=== PATIENT | male | born 1985 | race Caucasian/White ===

== ENCOUNTER 2019-01-19 14:10 | Emergency (ER) | payer MEDICAID ==
[~2019-01-19] VITALS: Ht 180.3 cm; Wt 68.0 kg
[2019-01-19] MEDS ORDERED: ERYT1OIN LEFTEYE (15:04)
== END 2019-01-19 15:09 | disposition home or self-care (01) ==
LOC: ER 14:10
DX: S05.02XA Injury of conjunctiva and corneal abrasion without foreign body, left eye, initial encounter (principal); X58.XXXA Exposure to other specified factors, initial encounter
CPT/HCPCS: 99282

== ENCOUNTER 2024-02-16 17:03 | Emergency (ER) | payer SELFPAY ==
[~2024-02-16] VITALS: Ht 177.8 cm; Wt 65.8 kg
[~2024-02-16 17:03] MED LIST: ERYT1OIN LEFTEYE
[2024-02-16 17:16] VITALS: BP 162/100
[2024-02-16] MEDS ORDERED: Norco 5-325 Ta1 EACH PO (18:03)
== END 2024-02-16 18:23 | disposition home or self-care (01) ==
LOC: ER 17:03
DX: S92.351A Displaced fracture of fifth metatarsal bone, right foot, initial encounter for closed fracture (principal); W10.8XXA Fall (on) (from) other stairs and steps, initial encounter
CPT/HCPCS: 73630; 99283-25